=== PATIENT | male | born 1950 | race Caucasian/White ===

== ENCOUNTER → 2016-12-01 | Outpatient (CLI) | payer MEDICARE, OTHER ==
[~2016-12-01] MED LIST: ALBUTEROL17 GM; ALL DAY ALLERGY10 M3 PO; AZELASTINE; BAYER ASPIRIN325 M1 PO; CHANTIX1 MG BC; CLINDAMYCIN HC300 MG; CLOPIDOGREL75 MG PO; COATED ASPIRIN325 M1 PO; HYDROCODON-ACE1 EAC9; IMDUR-ER60 M1; IMDUR-ER60 M1 PO; LOPID600 MG PO; LORAZEPAM0.5 MG; LYRICA75 MG; METOPROLOL; METOPROLOL TAR25 MG PO; MOBIC15 MG; MULTI VITAMIN1 EACH; NEXIUM PO; NITRO; PLAVIX PO; SIMVASTATIN20 MG; SIMVASTATIN20 MG PO; SYMBICORT 160/4.6 G1 IH; ZYRTEC10 M2
--- NOTE | ~2016-12-01 | CT57 ---
[facility] A Service of [facility] & [facility] RADIOLOGY TEXT RESULTS PATIENT: DANE CHARLES LOCATION: [facility] : 52 UNIT #: [id number] AGE: [address]: Brandt Crowder MD SEX: M ORDER DR: [id number] [facility] [address] [place], [place] [address] [id number] O MR#: [id number] Acc #: [id number] NAME: DANE CHARLES. : 1950 SEX: M STUDY DATE/TIME: 12/01/2016 8:21 UNIT: [facility] ROOM: STUDY DESCRIPTION: CT Chest Wo Cont Attending Physician: Brandt Crowder M.D. Referring Physician: Brandt Crowder M.D. Ordering Physician: Brandt Crowder M.D. Primary Care Physician: Shen Jennings M.D. MEDICAL IMAGING REPORT This report is preliminary unless electronic signature is present CT of the chest without contrast. INDICATIONS 66-year-old male with followup pulmonary nodule. TECHNIQUE CT scan of the chest was performed without contrast. Coronal and sagittal reformatted images were obtained. Comparison with 05/19/2016. This CT exam was performed with one or more of the following radiation dose reduction techniques: automatic exposure control, adjustment of mA and/or kV according to patient size, and iterative reconstruction. FINDINGS Scattered granulomatous calcifications. Minimal emphysematous change. Stable band-like density in the base of the right lower lobe. This is unchanged from 05/19/2016. It is less nodular than 01/19/2016. No new nodules. No lymphadenopathy or pleural effusion. Coronary artery calcification. Small hiatal hernia containing fat. Limited imaging of the upper abdomen demonstrates a prior cholecystectomy and what appears to be some drop gallstones. The bone windows are unremarkable. IMPRESSION 1. Persistent bandlike density in the right lung base unchanged from most recent study and less nodular compared with the study from January of last year. This is suspected to probably represents some scarring. 2. No new nodules. Dictated by... Telly Arana M.D. THIS IS AN ELECTRONICALLY VERIFIED REPORT Telly Arana M.D. at 12/01/2016 5:01 PM ARS/pc STS. [facility] A Service of [facility] & [facility] RADIOLOGY TEXT RESULTS PATIENT: DANE CHARLES LOCATION: [facility] : 52 UNIT #: [id number] AGE: [address]: Brandt Crowder MD SEX: M ORDER DR: TD: 12/01/2016 10:06 JOB #: [id number] MEDICAL IMAGING REPORT Page 1 of 1 COPY
== END | disposition home or self-care (01) ==
LOC: CCAT 07:58
DX: R91.1 Solitary pulmonary nodule (principal); J98.4 Other disorders of lung
CPT/HCPCS: 71250